=== PATIENT | male | born 1965 | race Caucasian/White ===

== ENCOUNTER 2018-01-29 23:52 | Emergency (ER) | payer OTHER ==
[2018-01-30] MEDS: LORAZEPAM 2 MG INJ IV (00:42)
[2018-01-30 00:43] LABS: ADD MAN DIFF? NO
[2018-01-30 01:12] LABS: ANION GAP 20 (8-16); BLOOD UREA NITROGEN 11 mg/dl (7-20); CALCIUM 9.7 mg/dl (8.4-10.2); CARBON DIOXIDE 21 mmol/L (21-31); CHLORIDE 101 mmol/L (97-110); CREATININE 0.62 mg/dl (0.61-1.24); GLUCOSE 287 mg/dl (70-220); POTASSIUM 3.5 mmol/L (3.5-5.1); SODIUM 138 mmol/L (135-144)
[2018-01-30 01:17] LABS: WHITE BLOOD COUNT 5.6 10^3/ul (4.8-10.8)
[2018-01-30 01:17] LABS: ABNORMAL IP MESSAGE 1; BASOPHIL # 0.1 10^3/ul (0.0-0.1); BASOPHILS % 1.4 % (0.0-2.0); EOSINOPHILS % 0.2 % (0.0-7.0); HEMATOCRIT 36.6 % (42.0-52.0); HEMOGLOBIN 12.7 g/dl (14.0-18.0); LYMPHOCYTES # 1.8 10^3/ul (0.8-2.9); LYMPHOCYTES % 32.3 % (15.0-51.0); MAGNESIUM 0.8 mg/dl (1.7-2.5); MEAN CORPUSCULAR HEMOGLOBIN 31.3 pg (29.0-33.0); MEAN CORPUSCULAR HGB CONC 34.7 g/dl (32.0-37.0); MEAN CORPUSCULAR VOLUME 90.1 fl (82.0-101.0); MEAN PLATELET VOLUME 11.4 fl (7.4-10.4); MONOCYTE # 0.5 10^3/ul (0.3-0.9); MONOCYTES % 8.4 % (0.0-11.0); NEUTROPHIL # 3.2 10^3/ul (1.6-7.5); NEUTROPHILS % 56.4 % (39.0-77.0); PLATELET COUNT 43 10^3/UL (140-415); POSITIVE DIFF @See below; RED BLOOD COUNT 4.06 10^6/ul (4.70-6.10); RED CELL DISTRIBUTION WIDTH 12.4 % (11.5-14.5)
[2018-01-30] MEDS ORDERED: MAGNESIUM OXIDE 400 MG TAB PO (02:30)
[2018-01-30] MEDS: MAGNESIUM SULFATE 4 GM/100 ML 100 ML IVPB (02:35)
== END 2018-01-30 04:45 | disposition home or self-care (01) ==
LOC: E/R 23:52
DX: F10.10 Alcohol abuse, uncomplicated (principal); E83.42 Hypomagnesemia; D64.9 Anemia, unspecified; D69.6 Thrombocytopenia, unspecified; I10 Essential (primary) hypertension; E11.9 Type 2 diabetes mellitus without complications; Z79.84 Long term (current) use of oral hypoglycemic drugs; Z87.891 Personal history of nicotine dependence
CPT/HCPCS: 80048; 82962; 83735; 85025; 96374; 96375; 99284-25

== ENCOUNTER 2018-01-30 19:09 | Emergency (ER) | payer OTHER ==
[2018-01-30] MEDS: CHLORDIAZEPOXIDE 25 MG CAP PO (20:04)
== END 2018-01-30 20:43 | disposition home or self-care (01) ==
LOC: E/R 19:09
DX: F10.230 Alcohol dependence with withdrawal, uncomplicated (principal); I10 Essential (primary) hypertension; E11.9 Type 2 diabetes mellitus without complications; F17.210 Nicotine dependence, cigarettes, uncomplicated; Z79.84 Long term (current) use of oral hypoglycemic drugs
CPT/HCPCS: 99283; Z7502

== ENCOUNTER 2019-01-10 03:34 | Inpatient (IN) | payer MEDICAID, OTHER ==
[2019-01-10 03:58] LABS: ADD MAN DIFF? NO
[2019-01-10] MEDS ORDERED: ONDANSETRON 4 MG INJ IV ×2 (04:00→05:30)
[2019-01-10] MEDS ORDERED: ACETAMINOPHEN 325 MG TAB PO (04:00)
[2019-01-10 04:04] LABS: ABNORMAL IP MESSAGE 1; BASOPHIL # 0.1 10^3/ul (0.0-0.1); BASOPHILS % 0.7 % (0.0-2.0); EOSINOPHILS % 0.1 % (0.0-7.0); HEMOGLOBIN 12.1 g/dl (14.0-18.0); LYMPHOCYTES # 2.3 10^3/ul (0.8-2.9); LYMPHOCYTES % 33.7 % (15.0-51.0); MEAN CORPUSCULAR HEMOGLOBIN 29.6 pg (29.0-33.0); MEAN CORPUSCULAR HGB CONC 33.6 g/dl (32.0-37.0); MEAN PLATELET VOLUME 11.6 fl (7.4-10.4); MONOCYTE # 0.8 10^3/ul (0.3-0.9); MONOCYTES % 12.1 % (0.0-11.0); NEUTROPHIL # 3.7 10^3/ul (1.6-7.5); PLATELET COUNT 57 10^3/UL (140-415); POSITIVE DIFF @See below; RED BLOOD COUNT 4.09 10^6/ul (4.70-6.10); RED CELL DISTRIBUTION WIDTH 14.2 % (11.5-14.5)
[2019-01-10 04:36] LABS: ALANINE AMINOTRANSFERASE 75 IU/L (13-69); ALBUMIN 4.8 g/dl (3.3-4.9); ALBUMIN/GLOBULIN RATIO 1.26; ALKALINE PHOSPHATASE 253 IU/L (42-121); ANION GAP 24 (5-13); ASPARTATE AMINO TRANSFERASE 131 IU/L (15-46); BILIRUBIN,INDIRECT 0.9 mg/dl (0-1.1); BILIRUBIN,TOTAL 0.9 mg/dl (0.2-1.3); BLOOD UREA NITROGEN 13 mg/dl (7-20); CALCIUM 9.7 mg/dl (8.4-10.2); CARBON DIOXIDE 19 mmol/L (21-31); CHLORIDE 91 mmol/L (97-110); CREATININE 0.55 mg/dl (0.61-1.24); Estimated GFR > 60 mL/min (>60); POTASSIUM 3.5 mmol/L (3.5-5.1); SODIUM 134 mmol/L (135-144); TOTAL PROTEIN 8.6 g/dl (6.1-8.1)
[2019-01-10 04:37] LABS: ETHANOL < 10.0 mg/dl (0-0)
[2019-01-10] MEDS: MULTIVITAMINS 10 ML, THIAMINE 100 MG, FOLIC ACID 1 MG, MAGNESIUM SULFATE 2 GM in SOD CH... IV (04:37)
[2019-01-10 04:39] LABS: GLUCOSE 456 mg/dl (70-220)
[2019-01-10] MEDS: LORAZEPAM 2 MG INJ IV (05:26)
[2019-01-10 05:30] LABS: ADD UMIC YES; UR ASCORBIC ACID NEGATIVE (NEGATIVE); UR BILIRUBIN (Dip) NEGATIVE (NEGATIVE); UR BLOOD (Dip) 1+ mg/dL (NEGATIVE); UR CLARITY CLEAR (CLEAR); UR COLOR STRAW (YELLOW); UR GLUCOSE (Dip) 3+ mg/dL (NEGATIVE); UR KETONES (Dip) 1+ mg/dL (NEGATIVE); UR LEUKOCYTE ESTERASE (Dip) NEGATIVE Leu/ul (NEGATIVE); UR NITRITE (Dip) NEGATIVE (NEGATIVE); UR RBC 3 /HPF (0-5); UR TOTAL PROTEIN (Dip) 2+ mg/dl (NEGATIVE); UR UROBILINOGEN (Dip) NEGATIVE (NEGATIVE); UR WBC 1 /HPF (0-5)
[2019-01-10] MEDS ORDERED: NACL 0.9% 3 ML SYG IV (05:30)
[2019-01-10] MEDS ORDERED: LORAZEPAM 2 MG INJ IV (05:30)
[2019-01-10] MEDS: LEVETIRACETAM 1000 MG (PMX) 100 ML IVPB (05:39)
[2019-01-10] MEDS: SOD CHLORIDE 0.9% 1,000 ML IV ×2 (05:44→14:37)
[2019-01-10] MEDS ORDERED: GLUCOSE GEL 15 GRAM TUBE PO ×2 (06:00)
[2019-01-10] MEDS ORDERED: GLUCOSE GEL 15 GRAM TUBE BUCCAL (06:00)
[2019-01-10] MEDS ORDERED: DEXTROSE 50% 50 ML SYRINGE IV ×2 (06:00)
[2019-01-10] MEDS ORDERED: GLUCAGON 1 MG INJ IM (06:00)
[2019-01-10 07:49] LABS: HEPATITIS B SURFACE ANTIGEN NEGATIVE (NEGATIVE)
[2019-01-10 08:05] LABS: HEPATITIS B SURFACE ANTIBODY NEGATIVE (NEGATIVE)
[2019-01-10 08:06] LABS: HEPATITIS C VIRAL ANTIBODY NEGATIVE (NEGATIVE); HIV 1&2 ANTIBODY NEGATIVE (NEGATIVE)
[2019-01-10] MEDS: ACETAMINOPHEN 500 MG TAB PO (10:14)
[2019-01-10] MEDS: HEPARIN 5,000 UNIT/1 ML VIAL SC ×2 (10:24→20:11)
[2019-01-10] MEDS: INSULIN ASPART [NOVOLOG] 3 ML PEN SC ×6 (10:24→20:16)
[2019-01-10 11:30] LABS: HEMOGLOBIN A1C 12.1 % (0-5.9)
[2019-01-10] MEDS: CHLORDIAZEPOXIDE 25 MG CAP PO ×2 (12:10→20:10)
[2019-01-10 12:45] LABS: ALANINE AMINOTRANSFERASE 65 IU/L (13-69); ALBUMIN 4.1 g/dl (3.3-4.9); ALBUMIN/GLOBULIN RATIO 1.13; ALKALINE PHOSPHATASE 178 IU/L (42-121); ANION GAP 9 (5-13); ASPARTATE AMINO TRANSFERASE 111 IU/L (15-46); BILIRUBIN,INDIRECT 0.8 mg/dl (0-1.1); BILIRUBIN,TOTAL 0.8 mg/dl (0.2-1.3); BLOOD UREA NITROGEN 13 mg/dl (7-20); CALCIUM 8.7 mg/dl (8.4-10.2); CARBON DIOXIDE 28 mmol/L (21-31); CHLORIDE 98 mmol/L (97-110); CREATININE 0.51 mg/dl (0.61-1.24); Estimated GFR > 60 mL/min (>60); GLUCOSE 166 mg/dl (70-220); MAGNESIUM 1.1 mg/dl (1.7-2.5); POTASSIUM 3.1 mmol/L (3.5-5.1); SODIUM 135 mmol/L (135-144); TOTAL PROTEIN 7.7 g/dl (6.1-8.1)
[2019-01-10] MEDS: INSULIN GLARGINE [LANTus] (100 UNITS/ML) SYG SC (20:08)
[2019-01-11] MEDS: SOD CHLORIDE 0.9% 1,000 ML IV ×4 (00:14→13:25)
[2019-01-11] MEDS: LORAZEPAM 2 MG INJ IV ×8 (00:57→22:20)
[2019-01-11] MEDS: ACCU-CHEK XX (01:50)
[2019-01-11] MEDS ORDERED: LORAZEPAM 2 MG INJ IV (03:30)
[2019-01-11] MEDS: hydrALAzine 20 MG INJ IV (05:08)
[2019-01-11 05:37] LABS: ADD MAN DIFF? NO
[2019-01-11 05:53] LABS: WHITE BLOOD COUNT 5.9 10^3/ul (4.8-10.8)
[2019-01-11 05:53] LABS: ABNORMAL IP MESSAGE 1; BASOPHIL # 0.1 10^3/ul (0.0-0.1); EOSINOPHILS # 0.1 10^3/ul (0.0-0.5); HEMATOCRIT 33.6 % (42.0-52.0); HEMOGLOBIN 11.8 g/dl (14.0-18.0); LYMPHOCYTES # 1.5 10^3/ul (0.8-2.9); LYMPHOCYTES % 24.7 % (15.0-51.0); MEAN CORPUSCULAR HEMOGLOBIN 29.9 pg (29.0-33.0); MEAN CORPUSCULAR HGB CONC 35.1 g/dl (32.0-37.0); MEAN CORPUSCULAR VOLUME 85.3 fl (82.0-101.0); MEAN PLATELET VOLUME 10.8 fl (7.4-10.4); MONOCYTE # 0.8 10^3/ul (0.3-0.9); MONOCYTES % 13.6 % (0.0-11.0); NEUTROPHIL # 3.5 10^3/ul (1.6-7.5); PLATELET COUNT 67 10^3/UL (140-415); POSITIVE DIFF @See below; RED BLOOD COUNT 3.94 10^6/ul (4.70-6.10); RED CELL DISTRIBUTION WIDTH 13.7 % (11.5-14.5)
[2019-01-11 06:44] LABS: ALANINE AMINOTRANSFERASE 66 IU/L (13-69); ALBUMIN 4.1 g/dl (3.3-4.9); ALKALINE PHOSPHATASE 151 IU/L (42-121); ANION GAP 9 (5-13); ASPARTATE AMINO TRANSFERASE 124 IU/L (15-46); BILIRUBIN,INDIRECT 0.9 mg/dl (0-1.1); BILIRUBIN,TOTAL 0.9 mg/dl (0.2-1.3); BLOOD UREA NITROGEN 11 mg/dl (7-20); CALCIUM 8.4 mg/dl (8.4-10.2); CARBON DIOXIDE 27 mmol/L (21-31); CHLORIDE 100 mmol/L (97-110); CHOLESTEROL 308 mg/dl (100-200); Estimated GFR > 60 mL/min (>60); GLUCOSE 142 mg/dl (70-220); SODIUM 136 mmol/L (135-144); TOTAL PROTEIN 7.5 g/dl (6.1-8.1); TRIGLYCERIDES 110 mg/dl (0-149)
[2019-01-11 06:48] LABS: POTASSIUM 2.8 mmol/L (3.5-5.1)
[2019-01-11 07:10] LABS: HDL CHOLESTEROL 152 mg/dl (28-71); LDL CHOLESTEROL,CALCULATED 134 mg/dl
[2019-01-11 07:17] LABS: HEMOGLOBIN A1C 12.1 % (0-5.9)
[2019-01-11] MEDS ORDERED: MAGNESIUM SULFATE 4 GM/100 ML 100 ML IVPB (08:30)
[2019-01-11] MEDS: HALOPERIDOL 5 MG INJ IV (08:48)
[2019-01-11] MEDS: CHLORDIAZEPOXIDE 25 MG CAP PO ×3 (08:50→20:17)
[2019-01-11] MEDS: HEPARIN 5,000 UNIT/1 ML VIAL SC ×2 (08:51→20:25)
[2019-01-11] MEDS: INSULIN ASPART [NOVOLOG] 3 ML PEN SC ×7 (08:52→20:30)
[2019-01-11] MEDS: POTASSIUM CHLORIDE (SR) 20 MEQ TAB PO (08:53)
[2019-01-11] MEDS: BENAZEPRIL 10 MG TAB PO (08:53)
[2019-01-11] MEDS: MAGNESIUM SULFATE 3 GM in SOD CHLORIDE 0.9% 100 ML IVPB (10:05)
[2019-01-11] MEDS: METOPROLOL 25 MG TAB PO ×2 (10:14→20:18)
[2019-01-11] MEDS: MULTIVITAMINS 10 ML, THIAMINE 100 MG, FOLIC ACID 1 MG in SOD CHLORIDE 0.9% 1,000 ML IVPB (13:42)
[2019-01-11 15:30] LABS: POTASSIUM 3.3 mmol/L (3.5-5.1)
[2019-01-11] MEDS: POTASSIUM CHLORIDE 50 ML IVPB ×3 (20:19→23:11)
[2019-01-11] MEDS: INSULIN GLARGINE [LANTus] (100 UNITS/ML) SYG SC (20:23)
[2019-01-11] MEDS: HALOPERIDOL 5 MG INJ IM (23:04)
[2019-01-12] MEDS: LORAZEPAM 2 MG INJ IV ×2 (00:25→03:28)
[2019-01-12] MEDS: METOPROLOL 5 MG INJ IV (01:29)
[2019-01-12] MEDS: ACCU-CHEK XX (02:07)
[2019-01-12] MEDS: SOD CHLORIDE 0.9% 1,000 ML IV ×7 (02:08→21:25)
[2019-01-12 06:20] LABS: ADD MAN DIFF? NO
[2019-01-12 06:26] LABS: WHITE BLOOD COUNT 8.8 10^3/ul (4.8-10.8)
[2019-01-12 06:26] LABS: ABNORMAL IP MESSAGE 1; BASOPHIL # 0.1 10^3/ul (0.0-0.1); BASOPHILS % 0.9 % (0.0-2.0); EOSINOPHILS % 0.2 % (0.0-7.0); HEMATOCRIT 34.9 % (42.0-52.0); LYMPHOCYTES # 1.8 10^3/ul (0.8-2.9); LYMPHOCYTES % 20.8 % (15.0-51.0); MEAN CORPUSCULAR HEMOGLOBIN 29.7 pg (29.0-33.0); MEAN CORPUSCULAR HGB CONC 34.4 g/dl (32.0-37.0); MEAN CORPUSCULAR VOLUME 86.4 fl (82.0-101.0); MONOCYTE # 1.3 10^3/ul (0.3-0.9); MONOCYTES % 15.1 % (0.0-11.0); NEUTROPHIL # 5.5 10^3/ul (1.6-7.5); NEUTROPHILS % 62.5 % (39.0-77.0); POSITIVE DIFF @See below; RED BLOOD COUNT 4.04 10^6/ul (4.70-6.10); RED CELL DISTRIBUTION WIDTH 13.8 % (11.5-14.5)
[2019-01-12 06:33] LABS: PLATELET COUNT 90 10^3/UL (140-415)
[2019-01-12 06:42] LABS: ALANINE AMINOTRANSFERASE 95 IU/L (13-69); ALBUMIN 4.4 g/dl (3.3-4.9); ALKALINE PHOSPHATASE 151 IU/L (42-121); ANION GAP 14 (5-13); ASPARTATE AMINO TRANSFERASE 190 IU/L (15-46); BILIRUBIN,INDIRECT 0.9 mg/dl (0-1.1); BILIRUBIN,TOTAL 0.9 mg/dl (0.2-1.3); BLOOD UREA NITROGEN 11 mg/dl (7-20); CALCIUM 8.7 mg/dl (8.4-10.2); CARBON DIOXIDE 22 mmol/L (21-31); CHLORIDE 106 mmol/L (97-110); Estimated GFR > 60 mL/min (>60); GLUCOSE 127 mg/dl (70-220); POTASSIUM 3.4 mmol/L (3.5-5.1); SODIUM 142 mmol/L (135-144); TOTAL PROTEIN 8.4 g/dl (6.1-8.1)
[2019-01-12 06:49] LABS: MAGNESIUM 1.3 mg/dl (1.7-2.5)
[2019-01-12 06:49] LABS: PHOSPHORUS 1.8 mg/dl (2.5-4.9)
[2019-01-12] MEDS: INSULIN ASPART [NOVOLOG] 3 ML PEN SC ×7 (07:37→20:44)
[2019-01-12] MEDS: CHLORDIAZEPOXIDE 25 MG CAP PO ×4 (08:48→20:37)
[2019-01-12] MEDS: METOPROLOL 25 MG TAB PO ×2 (08:48→20:38)
[2019-01-12] MEDS: BENAZEPRIL 10 MG TAB PO (08:48)
[2019-01-12] MEDS: MULTIVITAMINS 10 ML, THIAMINE 100 MG, FOLIC ACID 1 MG in SOD CHLORIDE 0.9% 1,000 ML IVPB (08:54)
[2019-01-12] MEDS: HEPARIN 5,000 UNIT/1 ML VIAL SC ×2 (09:18→20:39)
[2019-01-12] MEDS: POTASSIUM PHOSPHATE 15 MM in SOD CHLORIDE 0.9% 250 ML IVPB (10:59)
[2019-01-12] MEDS: MAGNESIUM SULFATE 3 GM in DEXTROSE 5% 100 ML IVPB (14:05)
[2019-01-12] MEDS: INSULIN GLARGINE [LANTus] (100 UNITS/ML) SYG SC (20:43)
[2019-01-13] MEDS: hydrALAzine 20 MG INJ IV (01:48)
[2019-01-13] MEDS: ACCU-CHEK XX (01:57)
[2019-01-13 06:27] LABS: ADD MAN DIFF? NO
[2019-01-13 06:32] LABS: ABNORMAL IP MESSAGE 1; BASOPHIL # 0.1 10^3/ul (0.0-0.1); BASOPHILS % 1.3 % (0.0-2.0); EOSINOPHILS # 0.1 10^3/ul (0.0-0.5); EOSINOPHILS % 1.9 % (0.0-7.0); HEMOGLOBIN 11.2 g/dl (14.0-18.0); LYMPHOCYTES # 1.4 10^3/ul (0.8-2.9); LYMPHOCYTES % 29.4 % (15.0-51.0); MEAN CORPUSCULAR HEMOGLOBIN 29.6 pg (29.0-33.0); MEAN CORPUSCULAR HGB CONC 33.9 g/dl (32.0-37.0); MEAN CORPUSCULAR VOLUME 87.1 fl (82.0-101.0); MEAN PLATELET VOLUME 10.5 fl (7.4-10.4); MONOCYTE # 0.7 10^3/ul (0.3-0.9); MONOCYTES % 15.4 % (0.0-11.0); NEUTROPHIL # 2.5 10^3/ul (1.6-7.5); NEUTROPHILS % 51.8 % (39.0-77.0); PLATELET COUNT 94 10^3/UL (140-415); POSITIVE DIFF @See below; RED BLOOD COUNT 3.79 10^6/ul (4.70-6.10); RED CELL DISTRIBUTION WIDTH 14.2 % (11.5-14.5)
[2019-01-13 06:32] LABS: WHITE BLOOD COUNT 4.7 10^3/ul (4.8-10.8)
[2019-01-13 06:50] LABS: PHOSPHORUS 3.3 mg/dl (2.5-4.9)
[2019-01-13 06:50] LABS: MAGNESIUM 1.5 mg/dl (1.7-2.5)
[2019-01-13 06:55] LABS: ALANINE AMINOTRANSFERASE 87 IU/L (13-69); ALBUMIN 3.6 g/dl (3.3-4.9); ALBUMIN/GLOBULIN RATIO 1.16; ALKALINE PHOSPHATASE 135 IU/L (42-121); ANION GAP 7 (5-13); ASPARTATE AMINO TRANSFERASE 143 IU/L (15-46); BILIRUBIN,INDIRECT 0.8 mg/dl (0-1.1); BILIRUBIN,TOTAL 0.8 mg/dl (0.2-1.3); BLOOD UREA NITROGEN 12 mg/dl (7-20); CALCIUM 8.4 mg/dl (8.4-10.2); CARBON DIOXIDE 24 mmol/L (21-31); CHLORIDE 108 mmol/L (97-110); CREATININE 0.52 mg/dl (0.61-1.24); Estimated GFR > 60 mL/min (>60); GLUCOSE 174 mg/dl (70-220); SODIUM 139 mmol/L (135-144); TOTAL PROTEIN 6.7 g/dl (6.1-8.1)
[2019-01-13 07:10] LABS: POTASSIUM 2.7 mmol/L (3.5-5.1)
[2019-01-13] MEDS: POTASSIUM CHLORIDE (SR) 20 MEQ TAB PO ×4 (08:18→14:01)
[2019-01-13] MEDS: METOPROLOL 25 MG TAB PO ×2 (08:19→20:57)
[2019-01-13] MEDS: CHLORDIAZEPOXIDE 25 MG CAP PO ×2 (08:19→12:15)
[2019-01-13] MEDS: INSULIN ASPART [NOVOLOG] 3 ML PEN SC ×7 (08:23→20:56)
[2019-01-13] MEDS: HEPARIN 5,000 UNIT/1 ML VIAL SC ×2 (08:23→20:55)
[2019-01-13] MEDS: BENAZEPRIL 10 MG TAB PO (09:00)
[2019-01-13] MEDS: MAGNESIUM SULFATE 3 GM in DEXTROSE 5% 100 ML IVPB (10:04)
[2019-01-13] MEDS: MULTIVITAMINS 10 ML, THIAMINE 100 MG, FOLIC ACID 1 MG in SOD CHLORIDE 0.9% 1,000 ML IVPB (12:29)
[2019-01-13 16:39] LABS: ANION GAP 9 (5-13); BLOOD UREA NITROGEN 16 mg/dl (7-20); CALCIUM 8.5 mg/dl (8.4-10.2); CARBON DIOXIDE 20 mmol/L (21-31); CHLORIDE 106 mmol/L (97-110); CREATININE 0.57 mg/dl (0.61-1.24); Estimated GFR > 60 mL/min (>60); GLUCOSE 170 mg/dl (70-220); MAGNESIUM 2.2 mg/dl (1.7-2.5); POTASSIUM 3.7 mmol/L (3.5-5.1); SODIUM 135 mmol/L (135-144)
[2019-01-13] MEDS: FISH OIL 1,000 MG CAP PO (20:49)
[2019-01-13] MEDS: INSULIN GLARGINE [LANTus] (100 UNITS/ML) SYG SC (20:55)
[2019-01-13] MEDS: CHLORDIAZEPOXIDE 5 MG CAP PO (21:21)
[2019-01-14] MEDS: ACCU-CHEK XX (02:13)
[2019-01-14 07:44] LABS: ADD MAN DIFF? NO
[2019-01-14 07:48] LABS: WHITE BLOOD COUNT 3.8 10^3/ul (4.8-10.8)
[2019-01-14 07:49] LABS: EOSINOPHILS # 0.1 10^3/ul (0.0-0.5); EOSINOPHILS % 2.9 % (0.0-7.0); HEMATOCRIT 32.7 % (42.0-52.0); HEMOGLOBIN 10.9 g/dl (14.0-18.0); LYMPHOCYTES # 1.5 10^3/ul (0.8-2.9); LYMPHOCYTES % 38.4 % (15.0-51.0); MEAN CORPUSCULAR HEMOGLOBIN 29.5 pg (29.0-33.0); MEAN CORPUSCULAR HGB CONC 33.3 g/dl (32.0-37.0); MEAN CORPUSCULAR VOLUME 88.4 fl (82.0-101.0); MEAN PLATELET VOLUME 10.3 fl (7.4-10.4); MONOCYTE # 0.7 10^3/ul (0.3-0.9); MONOCYTES % 17.5 % (0.0-11.0); NEUTROPHIL # 1.5 10^3/ul (1.6-7.5); NEUTROPHILS % 39.9 % (39.0-77.0); PLATELET COUNT 128 10^3/UL (140-415); RED CELL DISTRIBUTION WIDTH 14.5 % (11.5-14.5)
[2019-01-14 08:10] LABS: ALANINE AMINOTRANSFERASE 115 IU/L (13-69); ALBUMIN 3.6 g/dl (3.3-4.9); ALBUMIN/GLOBULIN RATIO 1.02; ALKALINE PHOSPHATASE 139 IU/L (42-121); ANION GAP 8 (5-13); ASPARTATE AMINO TRANSFERASE 167 IU/L (15-46); BILIRUBIN,INDIRECT 0.8 mg/dl (0-1.1); BILIRUBIN,TOTAL 0.8 mg/dl (0.2-1.3); BLOOD UREA NITROGEN 11 mg/dl (7-20); CALCIUM 8.7 mg/dl (8.4-10.2); CARBON DIOXIDE 23 mmol/L (21-31); CHLORIDE 109 mmol/L (97-110); CREATININE 0.52 mg/dl (0.61-1.24); Estimated GFR > 60 mL/min (>60); GLUCOSE 186 mg/dl (70-220); SODIUM 140 mmol/L (135-144); TOTAL PROTEIN 7.1 g/dl (6.1-8.1)
[2019-01-14] MEDS: BENAZEPRIL 10 MG TAB PO (08:11)
[2019-01-14] MEDS: CHLORDIAZEPOXIDE 5 MG CAP PO ×3 (08:11→20:59)
[2019-01-14] MEDS: FISH OIL 1,000 MG CAP PO ×2 (08:11→20:58)
[2019-01-14 08:13] LABS: PHOSPHORUS 3.3 mg/dl (2.5-4.9)
[2019-01-14 08:13] LABS: MAGNESIUM 1.3 mg/dl (1.7-2.5)
[2019-01-14] MEDS: METOPROLOL 25 MG TAB PO ×2 (08:13→21:03)
[2019-01-14] MEDS: HEPARIN 5,000 UNIT/1 ML VIAL SC ×2 (08:17→21:04)
[2019-01-14] MEDS: MULTIVITAMINS 10 ML, THIAMINE 100 MG, FOLIC ACID 1 MG in SOD CHLORIDE 0.9% 1,000 ML IVPB (08:18)
[2019-01-14] MEDS: INSULIN ASPART [NOVOLOG] 3 ML PEN SC ×7 (08:18→21:06)
[2019-01-14] MEDS: hydrALAzine 20 MG INJ IV (13:55)
[2019-01-14] MEDS: POTASSIUM CHLORIDE (SR) 20 MEQ TAB PO (15:23)
[2019-01-14] MEDS: VITAMIN B COMPLEX/VIT C CAP PO (17:14)
[2019-01-14] MEDS: MAGNESIUM SULFATE 3 GM in DEXTROSE 5% 100 ML IVPB (17:15)
[2019-01-14] MEDS: INSULIN GLARGINE [LANTus] (100 UNITS/ML) SYG SC (21:06)
[2019-01-15] MEDS: ACCU-CHEK XX (02:14)
[2019-01-15 07:16] LABS: ADD MAN DIFF? NO
[2019-01-15 07:24] LABS: BASOPHIL # 0.1 10^3/ul (0.0-0.1); BASOPHILS % 1.4 % (0.0-2.0); EOSINOPHILS # 0.1 10^3/ul (0.0-0.5); EOSINOPHILS % 2.7 % (0.0-7.0); HEMATOCRIT 32.1 % (42.0-52.0); HEMOGLOBIN 10.7 g/dl (14.0-18.0); LYMPHOCYTES # 1.7 10^3/ul (0.8-2.9); MEAN CORPUSCULAR HEMOGLOBIN 29.6 pg (29.0-33.0); MEAN CORPUSCULAR HGB CONC 33.3 g/dl (32.0-37.0); MEAN CORPUSCULAR VOLUME 88.7 fl (82.0-101.0); MEAN PLATELET VOLUME 10.9 fl (7.4-10.4); MONOCYTE # 0.8 10^3/ul (0.3-0.9); MONOCYTES % 19.1 % (0.0-11.0); NEUTROPHIL # 1.7 10^3/ul (1.6-7.5); NEUTROPHILS % 38.6 % (39.0-77.0); PLATELET COUNT 151 10^3/UL (140-415); RED BLOOD COUNT 3.62 10^6/ul (4.70-6.10); RED CELL DISTRIBUTION WIDTH 14.6 % (11.5-14.5)
[2019-01-15 07:24] LABS: WHITE BLOOD COUNT 4.4 10^3/ul (4.8-10.8)
[2019-01-15 07:40] LABS: ANION GAP 6 (5-13); BLOOD UREA NITROGEN 13 mg/dl (7-20); CALCIUM 9.4 mg/dl (8.4-10.2); CARBON DIOXIDE 26 mmol/L (21-31); CHLORIDE 109 mmol/L (97-110); CREATININE 0.66 mg/dl (0.61-1.24); Estimated GFR > 60 mL/min (>60); GLUCOSE 196 mg/dl (70-220); POTASSIUM 3.4 mmol/L (3.5-5.1); SODIUM 141 mmol/L (135-144)
[2019-01-15 07:45] LABS: MAGNESIUM 1.4 mg/dl (1.7-2.5)
[2019-01-15 07:45] LABS: PHOSPHORUS 3.7 mg/dl (2.5-4.9)
[2019-01-15] MEDS: HEPARIN 5,000 UNIT/1 ML VIAL SC ×2 (08:28→21:39)
[2019-01-15] MEDS: INSULIN ASPART [NOVOLOG] 3 ML PEN SC ×7 (08:31→21:37)
[2019-01-15] MEDS: CHLORDIAZEPOXIDE 5 MG CAP PO ×3 (08:42→21:40)
[2019-01-15] MEDS: FISH OIL 1,000 MG CAP PO ×2 (08:42→21:40)
[2019-01-15] MEDS: BENAZEPRIL 10 MG TAB PO (08:42)
[2019-01-15] MEDS: VITAMIN B COMPLEX/VIT C CAP PO (08:42)
[2019-01-15] MEDS: METOPROLOL 25 MG TAB PO ×2 (08:44→21:39)
[2019-01-15] MEDS: POTASSIUM CHLORIDE (SR) 10 MEQ TAB PO (09:30)
[2019-01-15] MEDS: MAGNESIUM SULFATE 3 GM in DEXTROSE 5% 100 ML IVPB (09:30)
[2019-01-15] MEDS: INSULIN GLARGINE [LANTus] (100 UNITS/ML) SYG SC (21:38)
[2019-01-16] MEDS: ACCU-CHEK XX (01:10)
[2019-01-16] MEDS: hydrALAzine 20 MG INJ IV (01:23)
[2019-01-16 06:02] LABS: ADD MAN DIFF? NO
[2019-01-16 06:18] LABS: WHITE BLOOD COUNT 4.3 10^3/ul (4.8-10.8)
[2019-01-16 06:18] LABS: BASOPHIL # 0.1 10^3/ul (0.0-0.1); BASOPHILS % 2.1 % (0.0-2.0); EOSINOPHILS # 0.1 10^3/ul (0.0-0.5); EOSINOPHILS % 2.5 % (0.0-7.0); HEMATOCRIT 33.5 % (42.0-52.0); HEMOGLOBIN 11.3 g/dl (14.0-18.0); LYMPHOCYTES # 1.7 10^3/ul (0.8-2.9); LYMPHOCYTES % 39.6 % (15.0-51.0); MEAN CORPUSCULAR HEMOGLOBIN 29.6 pg (29.0-33.0); MEAN CORPUSCULAR HGB CONC 33.7 g/dl (32.0-37.0); MEAN CORPUSCULAR VOLUME 87.7 fl (82.0-101.0); MEAN PLATELET VOLUME 10.5 fl (7.4-10.4); MONOCYTE # 0.7 10^3/ul (0.3-0.9); MONOCYTES % 15.7 % (0.0-11.0); NEUTROPHIL # 1.7 10^3/ul (1.6-7.5); NEUTROPHILS % 39.9 % (39.0-77.0); PLATELET COUNT 194 10^3/UL (140-415); RED BLOOD COUNT 3.82 10^6/ul (4.70-6.10); RED CELL DISTRIBUTION WIDTH 14.8 % (11.5-14.5)
[2019-01-16 06:42] LABS: PHOSPHORUS 3.9 mg/dl (2.5-4.9)
[2019-01-16 06:42] LABS: MAGNESIUM 1.2 mg/dl (1.7-2.5)
[2019-01-16 06:52] LABS: ANION GAP 9 (5-13); BLOOD UREA NITROGEN 15 mg/dl (7-20); CALCIUM 9.9 mg/dl (8.4-10.2); CARBON DIOXIDE 25 mmol/L (21-31); CHLORIDE 107 mmol/L (97-110); CREATININE 0.53 mg/dl (0.61-1.24); Estimated GFR > 60 mL/min (>60); GLUCOSE 177 mg/dl (70-220); POTASSIUM 3.5 mmol/L (3.5-5.1); SODIUM 141 mmol/L (135-144)
[2019-01-16] MEDS: INSULIN ASPART [NOVOLOG] 3 ML PEN SC ×6 (08:00→17:20)
[2019-01-16] MEDS: FISH OIL 1,000 MG CAP PO (08:42)
[2019-01-16] MEDS: CHLORDIAZEPOXIDE 5 MG CAP PO ×2 (08:42→12:27)
[2019-01-16] MEDS: VITAMIN B COMPLEX/VIT C CAP PO (08:43)
[2019-01-16] MEDS: BENAZEPRIL 10 MG TAB PO (08:43)
[2019-01-16] MEDS: METOPROLOL 25 MG TAB PO (08:44)
[2019-01-16] MEDS: HEPARIN 5,000 UNIT/1 ML VIAL SC (08:44)
[2019-01-16] MEDS: POTASSIUM CHLORIDE (SR) 10 MEQ TAB PO (12:28)
[2019-01-16] MEDS: MAGNESIUM SULFATE 4 GM/100 ML 100 ML IVPB (12:29)
[2019-01-16 13:28] LABS: ALANINE AMINOTRANSFERASE 147 IU/L (13-69); ALBUMIN 3.6 g/dl (3.3-4.9); ALKALINE PHOSPHATASE 167 IU/L (42-121); ASPARTATE AMINO TRANSFERASE 132 IU/L (15-46); BILIRUBIN,INDIRECT 0.4 mg/dl (0-1.1); BILIRUBIN,TOTAL 0.4 mg/dl (0.2-1.3); TOTAL PROTEIN 6.8 g/dl (6.1-8.1)
[2019-01-16] MEDS: metFORMIN 500 MG TAB PO (17:18)
== END 2019-01-16 18:35 | disposition home or self-care (01) | DRG 638 ==
LOC: 5EC 05:00 → E/R 03:34 → 6WM 03:59
DX: E11.649 Type 2 diabetes mellitus with hypoglycemia without coma (principal); F10.231 Alcohol dependence with withdrawal delirium; G92 Toxic encephalopathy; E78.5 Hyperlipidemia, unspecified; I10 Essential (primary) hypertension; Z78.1 Physical restraint status; Z79.84 Long term (current) use of oral hypoglycemic drugs; R74.0 Nonspecific elevation of levels of transaminase and lactic acid dehydrogenase [LDH]
CPT/HCPCS: 36415; 70450; 76705; 80048; 80053; 80061; 80076; 80307; 81001; 82962; 83036; 83735; 84100; 84132; 85025; 86703; 86706; 86803; 87340; 93005; 97110; 97116; 97162; 97530; 99285-25